=== PATIENT | male | born 1945 | race African-American/Black ===

== ENCOUNTER → 2019-11-09 | Outpatient (CLI) | payer OTHER, MEDICARE | END | disposition home or self-care (01) | LOC: GI 06:25 | DX: Z12.11 Encounter for screening for malignant neoplasm of colon (principal); Z86.010 Personal history of colon polyps; K63.5 Polyp of colon; E78.00 Pure hypercholesterolemia, unspecified; Z98.890 Other specified postprocedural states; Z79.899 Other long term (current) drug therapy; Z79.82 Long term (current) use of aspirin; Z11.59 Encounter for screening for other viral diseases ==

== ENCOUNTER → 2020-08-15 | Outpatient (CLI) | payer OTHER, MEDICARE ==
[~2020-08-15] MED LIST: ASA81BEC PO; BENEFIBER152 GM PO; CALCIUM500 MG PO; CHOLESTEROL RE1 EACH PO; GARLIC1 EACH PO; LOVASTAT10 PO; VITAMIN E400 UNIT PO
== END ==
LOC: SJCVC 09:45
PROVIDERS: ATTEND Internal Medicine
DX: R07.2 Precordial pain (principal); K21.9 Gastro-esophageal reflux disease without esophagitis; E78.5 Hyperlipidemia, unspecified; Z98.890 Other specified postprocedural states; Z79.82 Long term (current) use of aspirin; Z79.899 Other long term (current) drug therapy

== ENCOUNTER → 2020-08-16 | Outpatient (CLI) | payer OTHER, MEDICARE | LOC: SJCVCIMAG 10:42 | PROVIDERS: ATTEND Internal Medicine | DX: R07.2 Precordial pain (principal); Z72.89 Other problems related to lifestyle; Z79.82 Long term (current) use of aspirin; Z79.899 Other long term (current) drug therapy ==